=== PATIENT | female | born 1935 | race Two or more races ===

== ENCOUNTER 2022-08-07 05:43 | Day surgery (SDC) | payer OTHER | END 2022-08-07 11:30 | disposition home or self-care (01) | LOC: AMB-ENDOS 05:43 | PROVIDERS: ATTEND Colon & Rectal Surgery | DX: D12.4 Benign neoplasm of descending colon (principal); D12.3 Benign neoplasm of transverse colon; Q43.9 Congenital malformation of intestine, unspecified; K57.30 Diverticulosis of large intestine without perforation or abscess without bleeding; K64.8 Other hemorrhoids ==

== ENCOUNTER 2022-12-11 06:55 | Day surgery (SDC) | payer OTHER | END 2022-12-11 12:35 | disposition home or self-care (01) | LOC: AMB-ENDOS 06:55 | PROVIDERS: ATTEND Colon & Rectal Surgery | DX: D12.3 Benign neoplasm of transverse colon (principal); K57.30 Diverticulosis of large intestine without perforation or abscess without bleeding; K62.1 Rectal polyp; Z20.822 Contact with and (suspected) exposure to COVID-19; Z88.2 Allergy status to sulfonamides ==